=== PATIENT | female | born 2000 | race Caucasian/White ===

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

== ENCOUNTER 2019-02-28 12:37 | Emergency (ER) | payer OTHER ==
[~2019-02-28] VITALS: Ht 165.1 cm; Wt 64.1 kg
[2019-02-28] MEDS ORDERED: METH750T2 (12:41)
[2019-02-28 13:40] VITALS: BP 100/68
[2019-02-28 13:46] LABS: INFLUENZA A AMPLIFICATION NEGATIVE (NEGATIVE); INFLUENZA B AMPLIFICATION NEGATIVE (NEGATIVE)
== END 2019-02-28 14:36 | disposition home or self-care (01) ==
LOC: M ED 12:37
DX: J06.9 Acute upper respiratory infection, unspecified (principal); F17.200 Nicotine dependence, unspecified, uncomplicated; F41.9 Anxiety disorder, unspecified; F90.9 Attention-deficit hyperactivity disorder, unspecified type; Z79.899 Other long term (current) drug therapy

== ENCOUNTER → 2019-07-16 | Outpatient (CLI) | payer OTHER ==
[~2019-07-16] MED LIST changes: +METH750T2
--- NOTE | 2019-07-16 19:43 | REP ---
MRI RIGHT HIP: TECHNIQUE: Coronal T1, STIR through the pelvis, T2 fat sat, right hip all three planes, axial oblique proton density fat sat right hip. The right femoral head is flattened and broadened with a short femoral neck, most compatible with congenital hip dysplasia. There is no avascular necrosis. There is moderate diffuse chondromalacia at the right hip joint. There is mild subchondral marrow edema in the superolateral acetabulum with moderate degree of subchondral cystic change more centrally in the acetabulum. There is an extensive tear of the anterior labrum extending into the anterior portion of the superior labrum. There is an associated paralabral cyst extending along the anterior aspect of the superior acetabulum measuring approximately 16 x 6 mm. There is a small joint effusion. Surrounding soft tissue structures are unremarkable without significant trochanteric bursitis. Visualized intrapelvic structures appear unremarkable. IMPRESSION: Somewhat dysplastic appearance of the right hip compatible with old congenital hip dysplasia. The right femoral head is flattened with broadening. The femoral neck is shortened. There is no underlying avascular necrosis. There is moderate diffuse chondromalacia with subchondral marrow edema and cystic change in the acetabulum. There is an extensive tear of the anterior labrum extending into to the anterior aspect of the superior labrum. There is an associated paralabral cyst anteriorly and superiorly measuring about 16 x 6 mm. Small joint effusion. Electronically Signed by Nick Lee MD 07/17/2019 10:29 A
== END ==
LOC: M RAD 15:52
PROVIDERS: ATTEND Physician Assistant Medical
DX: M70.61 Trochanteric bursitis, right hip (principal)